=== PATIENT | male | born 1950 | race Caucasian/White ===

== ENCOUNTER 2017-12-30 20:50 | Emergency (ER) | payer MEDICARE, OTHER ==
[~2017-12-30] VITALS: Ht 177.8 cm; Wt 79.4 kg
[2017-12-30 21:00] VITALS: BP 138/78
--- NOTE | 2017-12-30 21:27 | Emergency Room Report ---
History of Present Illness General Chief Complaint: Abdominal Pain Source: Patient Present Illness HPI Patient presents with complaints of left lower abdominal pain Reports that there was component of flank pain earlier today Patient becomes nauseated when the pain comes and has vomited as well He reports previous kidney stone on the right side Never on the left denies any fevers or chills denies any chest pain or shortness of breath Pain also radiates to the inguinal area 8 out of 10 sharp Allergies: Coded Allergies: SULFA (SULFONAMIDE ANTIBIOTICS) (Verified Allergy, Unknown, 12/30/17) Patient History Past Medical History: see triage record Pertinent Family History: none Reviewed Nursing Documentation: PMH: Agreed; PSxH: Agreed Review of Systems All Other Systems: negative except mentioned in HPI Physical Exam Vital Signs Date Time Temp Pulse Resp B/P (MAP) Pulse Ox O2 Delivery O2 Flow Rate FiO2 12/30/17 21:00 97.9 66 18 135/81 98 Room Air 97.9 Sp02 EP Interpretation: reviewed, normal General Appearance: mild distress Head: normocephalic, atraumatic Eyes: bilateral eye PERRL, bilateral eye EOMI ENT: normal pharynx, no angioedema Neck: supple Respiratory: lungs clear, normal breath sounds Cardiovascular #1: regular rate, rhythm Gastrointestinal: non tender, soft Musculoskeletal: back normal Neurologic: alert, oriented x3, responsive, 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 Skin: normal color, no rash Lymphatic: no adenopathy Medical Decision Making Diagnostic Impression: Primary Impression: Renal colic on left side ER Course With the history exam and presentation, multiple differentials considered, including but not limited to appendicitis, gastritis, cholecystitis, diverticulitis Patient CT imaging reveals likely recently passed kidney stone on the left side Patient has done significantly better throughout his stay At this time on repeat evaluation is pain-free And will have initial conservative outpatient trial Labs Test 12/30/17 22:00 12/30/17 23:40 White Blood Count 6.4 K/UL (4.8-10.8) Red Blood Count 5.00 M/UL (4.70-6.10) Hemoglobin 16.8 G/DL (14.2-18.0) Hematocrit 46.8 % (42.0-52.0) Mean Corpuscular Volume 93 FL (80-99) Mean Corpuscular Hemoglobin 33.5 PG (27.0-31.0) Mean Corpuscular Hemoglobin Concent 35.8 G/DL (32.0-36.0) Red Cell Distribution Width 12.2 % (11.6-14.8) Platelet Count 110 K/UL (150-450) Mean Platelet Volume 9.4 FL (6.5-10.1) Neutrophils (%) (Auto) 68.2 % (45.0-75.0) Lymphocytes (%) (Auto) 22.2 % (20.0-45.0) Monocytes (%) (Auto) 8.3 % (1.0-10.0) Eosinophils (%) (Auto) 0.1 % (0.0-3.0) Basophils (%) (Auto) 1.2 % (0.0-2.0) Sodium Level 140 MMOL/L (136-145) Potassium Level 4.1 MMOL/L (3.5-5.1) Chloride Level 104 MMOL/L (98-107) Carbon Dioxide Level 26 MMOL/L (21-32) Anion Gap 10 mmol/L (5-15) Blood Urea Nitrogen 23 mg/dL (7-18) Creatinine 1.1 MG/DL (0.55-1.30) Estimat Glomerular Filtration Rate > 60 mL/min (>60) Glucose Level 112 MG/DL (74-106) Calcium Level 9.4 MG/DL (8.5-10.1) Total Bilirubin 0.5 MG/DL (0.2-1.0) Aspartate Amino Transf (AST/SGOT) 19 U/L (15-37) Alanine Aminotransferase (ALT/SGPT) 33 U/L (12-78) Alkaline Phosphatase 74 U/L (46-116) Total Protein 8.0 G/DL (6.4-8.2) Albumin 4.2 G/DL (3.4-5.0) Globulin 3.8 g/dL Albumin/Globulin Ratio 1.1 (1.0-2.7) Lipase 149 U/L (73-393) Urine Color Yellow Urine Appearance Slightly cloudy Urine pH 6 (4.5-8.0) Urine Specific [place] 1.020 (1.005-1.035) Urine Protein 2+ (NEGATIVE) Urine Glucose (UA) Negative (NEGATIVE) Urine Ketones 2+ (NEGATIVE) Urine Occult Blood 5+ (NEGATIVE) Urine Nitrite Negative (NEGATIVE) Urine Bilirubin Negative (NEGATIVE) Urine Urobilinogen 1 MG/DL (0.0-1.0) Urine Leukocyte Esterase 2+ (NEGATIVE) Urine RBC 20-30 /HPF (0 - 0) Urine WBC 2-4 /HPF (0 - 0) Urine Squamous Epithelial Cells Occasional /LPF Urine Bacteria Few /HPF (NONE) Rhythm Strip Diag. Results EP Interpretation: yes Rate: 77 Rhythm: NSR, no PVC's, no ectopy CT/MRI/US Diagnostic Results CT/MRI/US Diagnostic Results : Impression CT abdomen pelvisIMPRESSION: 1. Mild pelviectasis of the left kidney. Moderate left hydroureter. 3 millimeter calculus in the urinary bladder likely represents a recently passed stone. 2. Nonobstructive nephrolithiasis. 3. Urinary bladder wall thickening may be due to cystitis. Correlate with urinalysis. 4. Moderate prostatomegaly. 5. 8 millimeters solid-appearing pleural-based right lower lobe pulmonary nodule. Followup per Fleischner Society guidelines. 6. Colonic diverticulosis without CT evidence of acute diverticulitis. 7. Nodularity of hepatic contour is likely due to cirrhosis. 8. Other findings as detailed above. Last Vital Signs Date Time Temp Pulse Resp B/P (MAP) Pulse Ox O2 Delivery O2 Flow Rate FiO2 12/30/17 21:00 97.9 66 18 135/81 98 Room Air 97.9 Status: improved Disposition: HOME, SELF-CARE Condition: Improved Scripts Ibuprofen* (MOTRIN*) 600 Mg Tablet 600 MG ORAL Q8H PRN for For Pain, #20 TAB 0 Refills Prov: Pawan Rome DO 12/31/17 Tamsulosin Hcl (TAMSULOSIN HCL*) 0.4 Mg Cap.er.24h 0.4 MG ORAL BEDTIME for 7 Days, CAP Prov: Pawan Rome DO 12/31/17 Ciprofloxacin Hcl* (CIPROFLOXACIN HCL*) 500 Mg Tablet 500 MG ORAL Q12H, #14 TAB 0 Refills Prov: Pawan Rome DO 12/31/17 Additional Instructions: Please note that the patient was also made aware of the incidental findings in the lower lung and the need for close outpatient follow-up Patient is provided with the discharge instructions notified to follow up with primary doctor in the next 2-3 days otherwise return to the er with any worsening symptoms. Please note that this report is being documented using DRAGON technology. This can lead to erroneous entry secondary to incorrect interpretation by the dictating instrument. Pawan Rome DO Dec 30, 2017 21:26
[2017-12-30] MEDS ORDERED: Ketorolac 30mg Inj IV ONE (21:30)
[2017-12-30] MEDS ORDERED: Morphine Sulfate 4mg/ml Inj IVP ONE ×2 (21:30→23:30)
[2017-12-30 22:24] LABS: BASOPHILS % (AUTO) 1.2 % (0.0-2.0); EOSINOPHILS % (AUTO) 0.1 % (0.0-3.0); HEMATOCRIT 46.8 % (42.0-52.0); HEMOGLOBIN 16.8 G/DL (14.2-18.0); LYMPHOCYTES % (AUTO) 22.2 % (20.0-45.0); MEAN CORPUSCULAR VOLUME 93 FL (80-99); MONOCYTES % (AUTO) 8.3 % (1.0-10.0); NEUTROPHILS % (AUTO) 68.2 % (45.0-75.0); PLATELET COUNT 110 K/UL (150-450); RED CELL DISTRIBUTION WIDTH 12.2 % (11.6-14.8); WHITE BLOOD COUNT 6.4 K/UL (4.8-10.8)
--- NOTE | 2017-12-30 22:29 | Diagnostic Imaging Report ---
PROCEDURE: CT ABDOMEN + PELVIS Without Contrast HISTORY: 67-year-old male with abdominal pain. COMPARISON: CT abdomen and pelvis 05/09/2009 TECHNIQUE: CT imaging was obtained through the abdomen and pelvis. Coronal and sagittal reformations were performed. DOSE: Total Exam volume computed tomography dose index (CTDIvol) = 14.96 mGy and Dose Length Product (DLP) = 750 mGY-cm. One or more of the following dose reduction techniques were used: automated exposure control, adjustment of the mA and/or kV according to patient size, use of iterative reconstruction technique. FINDINGS: Evaluation is limited by motion degradation and lack of contrast. Lower thorax: Bilateral atelectasis. There is an 8 millimeter solid- appearing pleural-based right lower lobe pulmonary nodule, series 3 image 11, series 6 image 25, and series 7 image 91. There are calcifications of the mitral valve, aortic valve, coronary arteries and thoracic aorta. Abdomen: Nodularity of hepatic contour is likely due to cirrhosis. Cholecystectomy clips are identified at the gallbladder fossa. The spleen, pancreas, and bilateral adrenal glands are unremarkable. The left kidney demonstrates mild pelviectasis. There is moderate proximal left hydroureter and there is no evidence of radiopaque obstructing ureteral calculus. There are punctate nonobstructive calculi in the left kidney. The previously identified renal low density lesions were better demonstrated on contrast-enhanced CT. The right kidney is unremarkable. Evaluation of the GI tract is limited by lack of distention and retained stool. No bowel obstruction. Unremarkable appendix. There are a few colonic diverticula. No free fluid, free air or significant abdominal adenopathy. The abdominal vasculature demonstrates atherosclerotic calcifications. There is a small fat-containing periumbilical hernia. Pelvis: There is a 3 millimeter stone in the midportion of the urinary bladder. Given the findings in the left kidney and ureter, this likely represents a recently passed stone. No urinary bladder wall thickening may be due to cystitis. Correlate with urinalysis. The prostate is moderately enlarged measuring approximately 5 centimeters in transverse dimension. There are several prostatic calcifications. The seminal vesicles are within normal limits. No free fluid, free air or significant pelvic adenopathy. The pelvic vasculature demonstrates atherosclerotic calcification. There is a small fat-containing inguinal hernia. Bones: Degenerative changes of the spine. IMPRESSION: 1. Mild pelviectasis of the left kidney. Moderate left hydroureter. 3 millimeter calculus in the urinary bladder likely represents a recently passed stone. 2. Nonobstructive nephrolithiasis. 3. Urinary bladder wall thickening may be due to cystitis. Correlate with urinalysis. 4. Moderate prostatomegaly. 5. 8 millimeters solid-appearing pleural-based right lower lobe pulmonary nodule. Followup per Fleischner Society guidelines. 6. Colonic diverticulosis without CT evidence of acute diverticulitis. 7. Nodularity of hepatic contour is likely due to cirrhosis. 8. Other findings as detailed above.
[2017-12-30 22:30] VITALS: BP 140/68
[2017-12-30 22:33] LABS: ANION GAP 10 mmol/L (5-15); BLOOD UREA NITROGEN 23 mg/dL (7-18); CALCIUM 9.4 MG/DL (8.5-10.1); CARBON DIOXIDE 26 MMOL/L (21-32); CHLORIDE 104 MMOL/L (98-107); CREATININE 1.1 MG/DL (0.55-1.30); POTASSIUM 4.1 MMOL/L (3.5-5.1); SODIUM 140 MMOL/L (136-145)
[2017-12-30 22:37] LABS: ALANINE AMINOTRANSFERASE 33 U/L (12-78); ALBUMIN 4.2 G/DL (3.4-5.0); ALBUMIN/GLOBULIN RATIO 1.1 (1.0-2.7); ALKALINE PHOSPHATASE 74 U/L (46-116); ASPARTATE AMINO TRANSFERASE 19 U/L (15-37); BILIRUBIN,TOTAL 0.5 MG/DL (0.2-1.0)
[2017-12-30 23:54] LABS: APPEARANCE,URINE SLIGHTLY CLOUDY; BILIRUBIN, URINE NEGATIVE (NEGATIVE); GLUCOSE, URINE (UA) NEGATIVE (NEGATIVE); KETONES,URINE 2+ (NEGATIVE); LEUKOCYTE ESTERASE ,URINE 2+ (NEGATIVE); NITRITE,URINE NEGATIVE (NEGATIVE); PH,URINE 6 (4.5-8.0); PROTEIN,URINE 2+ (NEGATIVE); UROBILINOGEN,URINE 1 MG/DL (0.0-1.0)
[2017-12-30 23:59] LABS: COLOR,URINE YELLOW
[2017-12-31] VITALS: BP 134/70
[2017-12-31] MEDS ORDERED: CIPROFLOXACIN500 M2 ORAL (01:21)
[2017-12-31] MEDS ORDERED: IBUPROFEN600 MG ORAL (01:21)
[2017-12-31] MEDS ORDERED: TAMSULOSIN HCL0.4 MG ORAL (01:21)
[2017-12-31] MEDS ORDERED: Ciprofloxacin 500mg tab ORAL ONE (01:30)
[2017-12-31 01:46] VITALS: BP 137/69
[2017-12-31 02:00] VITALS: BP 137/69
== END 2017-12-31 02:00 | disposition home or self-care (01) ==
LOC: EMR 21:37
DX: N20.0 Calculus of kidney (principal); N40.0 Benign prostatic hyperplasia without lower urinary tract symptoms; R91.1 Solitary pulmonary nodule; K57.90 Diverticulosis of intestine, part unspecified, without perforation or abscess without bleeding; Z88.2 Allergy status to sulfonamides
CPT/HCPCS: 36415; 74176; 80053; 81003; 83690; 85025; 96360; 96374; 96375; 99284; J1885; J2270; J2405